=== PATIENT | male | born 1965 | race African-American/Black ===

== ENCOUNTER 2017-07-14 16:42 | Emergency (ER) | payer OTHER ==
[~2017-07-14] VITALS: Ht 170.2 cm; Wt 84.1 kg
[2017-07-14 16:50] VITALS: TEMP 36.7; Ht 170.2 cm; Wt 84.1 kg
[2017-07-14 17:35] VITALS: BP 130/73; PULSE 67; O2SAT 97
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
== END 2017-07-14 17:49 | disposition home or self-care (01) ==
LOC: C.EDB 16:45 → C.EDD 17:49
DX: R51 Headache (principal); R07.89 Other chest pain; V43.62XA Car passenger injured in collision with other type car in traffic accident, initial encounter; Y92.488 Other paved roadways as the place of occurrence of the external cause; Z85.038 Personal history of other malignant neoplasm of large intestine